=== PATIENT | male | born 1970 | race Caucasian/White ===

== ENCOUNTER 2017-10-03 16:19 | Observation (INO) ==
[2017-10-03] MEDS ORDERED: Aspirin 81 MG TAB.CHEW PO ONE (16:41)
[2017-10-03] MEDS ORDERED: 0.9 % Sodium Chloride 500 ML IVC ONE (16:42)
--- NOTE | 2017-10-03 16:44 | Emergency Department Note ---
Disposition Clinical Impression: Alcohol use, Pulmonary nodule Chest pain Qualifiers: Chest pain type: unspecified Qualified Code(s): R07.9 - Chest pain, unspecified Hypertension Qualifiers: Hypertension type: unspecified Qualified Code(s): I10 - Essential (primary) hypertension Disposition: Admitted As Inpatient Condition: Good Referrals: Dillon Bartlett MD [Primary Care Provider] - Forms: ED Satisfaction Letter Time of Disposition: 18:24 Chest Pain HPI - General Chief Complaint: ED Chest Pain Stated Complaint: chest pain Time Seen by Provider: 10/03/17 16:32 Source: patient Mode of arrival: ambulatory Limitations: no limitations Vital Signs Reviewed: Yes Nursing Notes Reviewed: Yes - History of Present Illness HPI Narrative: 47-year-old male history of hypertension presents for evaluation of chest pain. Patient states his onset was proximally 4 hours prior to arrival. States he has sharp pain in his anterior chest into his back. Patient denies a nausea vomiting or diaphoresis. Patient denies any radiation of pain to his arms. She denies having any cardiac history. States that he was evaluated couple weeks ago for similar complaint was not admitted at that time. Patient states he felt short of breath while walking earlier today. Patient denies any abdominal pain. Denies any fevers or cough. Denies any history of stents or heart attacks in the past. Patient is concerned because he drinks daily. Severity scale (1-10): 4 - Related Data Allergies Allergy/AdvReac Type Severity Reaction Status Date / Time No Known Allergies Allergy Verified 10/03/17 16:23 All systems ED: reviewed and negative except as stated. Constitutional: Denies: fever Cardiovascular: Reports: chest pain Respiratory: Reports: dyspnea. Denies: cough, sputum production Gastrointestinal: Denies: abdominal pain, nausea, vomiting Chest Pain PMH - Past Medical History Medical history: Reports: hypertension Psychiatric history: Reports: no psych history - Social History Smoking Status: Never smoker Alcohol use: Reports: heavy Drug use: Reports: none Physical Exam - General Limitations: no limitations General appearance: alert, in no apparent distress - Head Head exam: atraumatic, normocephalic, normal inspection - Eye Eye exam: Present: normal appearance, PERRL, EOMI - ENT ENT exam: normal exam, normal oropharynx - Neck Neck exam: Present: normal inspection - Chest Chest inspection: Present: normal inspection, symmetric chest wall rise. Absent : tenderness, rash - Respiratory Respiratory exam: Present: normal lung sounds bilaterally. Absent: respiratory distress - Cardiovascular Cardiovascular exam: Present: normal rhythm, tachycardia. Absent: systolic murmur - Abdominal Exam Abdominal exam: Present: soft, Non-Tender - Extremities Exam Extremities exam: Present: normal inspection. Absent: pedal edema - Back Exam Back exam: Present: normal inspection - Neurological Exam Neurological exam: Present: alert, oriented X3 - Skin Skin exam: Present: warm, dry, intact, normal color Course - Reevaluation(s) Reevaluation #1: Patient seen and examined. Patient's pain is improved with nitroglycerin. Time: 17:21 Reevaluation #2: Patient repeat EKG shows sinus rhythm with a rate of 74. No ST elevation. T- wave inversion in lead 3. T-wave inversions in V1. No ST elevation. Left axis. Time: 18:21 Reevaluation #3: Patient seen and examined. Patient's resting comfortably. Patient states his pain has improved. Patient's blood pressure heart rate have improved as well. Patient was given Ativan due to his history of alcohol use as well as anxiety. Time: 18:33 Vital Signs Temperature 98.0 F 10/03/17 16:24 Pulse Rate 105 10/03/17 16:24 Respiratory Rate 18 10/03/17 16:24 Blood Pressure 190/123 10/03/17 16:24 O2 Sat by Pulse Oximetry 96 10/03/17 16:24 Temperature 98.0 F 10/03/17 16:24 Pulse Rate 103 10/03/17 18:19 Respiratory Rate 15 10/03/17 18:02 Blood Pressure 167/114 10/03/17 18:19 O2 Sat by Pulse Oximetry 98 10/03/17 18:02 Oxygen Delivery Oxygen Delivery Room Air Chest Pain - [facility] Narrative Medical decision making narrative: Patient presents with complaints of chest pain. Patient's chest pain was concerning with dull pressure anterior chest pain. No radiation. Patient's pain was relieved with nitroglycerin. Given the patient's history of sharp back pain patient received a CTA of the chest. No aorta dissection or pulmonary embolism. Patient's pain was relieved with nitroglycerin. Patient's blood pressure also improved throughout his ED course. Patient's troponin is negative with only a few hours of onset chest pain. Patient had serial EKGs which were nondiagnostic for ischemia or STEMI. Patient does have a history of alcohol use and was given Ativan due to likely anxiety. Given the patient's history and risk factors patient will be admitted for serial troponins and further cardiac evaluation. Patient was given aspirin. Patient was not started on heparin given his negative troponin and no ischemic EKG changes, and no chest pain. Patient CTA showed pulmonary nodules however the patient does not smoke and is not complaining of any cough or fevers. This information was discussed with the patient. - Lab Data Lab results reviewed: Yes I reviewed the patient's lab results. Result diagrams: 10/03/17 16:41 10/03/17 16:41 Lab Results 10/03/17 10/03/17 10/03/17 Range/Units 16:41 16:41 16:41 WBC 7.4 (4.3-11.1) K/mcL RBC 5.95 H (4.19-5.50) M/mcL Hgb 17.6 H (12.9-16.9) g/dL Hct 50.6 H (37.5-50.1) % MCV 85.0 (83.0-100.0) fL MCH 29.6 (28.0-33.3) pg MCHC 34.8 (31.6-35.5) g/dL RDW 12.9 (11.5-14.5) % Plt Count 224 (140-400) K/mcL MPV 9.5 (9.4-12.4) fL Immature Gran % 0.3 (0-4) % Seg Neutrophils % 70.0 % Lymphocytes % 21.7 % Monocytes % 7.3 % Eosinophils % 0.3 % Basophils % 0.4 % Neutrophils # 5.2 (1.6-8.9) K/mcL Lymphocytes # 1.6 (0.6-4.6) K/mcL Monocytes # 0.5 (0.0-1.3) K/mcL Eosinophils # 0.0 (0.0-0.6) K/mcL Basophils # 0.0 (0.0-0.2) K/mcL PT 10.5 (9.4-12.1) Seconds INR 1.0 APTT 34.0 (26.0-36.0) Seconds Sodium 136 (136-145) mEq/L Potassium 3.8 (3.5-5.1) mEq/L Chloride 102 (98-107) mEq/L Carbon Dioxide 22 L (23-29) mEq/L BUN 12 (6-20) mg/dL Creatinine 0.79 (0.70-1.30) mg/dL Est GFR ( Amer) > 60 (> 60) Est GFR (Non-Af Amer) > 60 (> 60) BUN/Creatinine Ratio 15 (6-26) Glucose 116 H (70-105) mg/dL Calculated Osmolality 283 (280-300) Calcium 10.3 (8.6-10.3) mg/dL Troponin I < 0.03 (< 0.04) ng/mL B-Natriuretic Peptide (Less than 100) pg/mL 10/03/17 Range/Units 16:41 WBC (4.3-11.1) K/mcL RBC (4.19-5.50) M/mcL Hgb (12.9-16.9) g/dL Hct (37.5-50.1) % MCV (83.0-100.0) fL MCH (28.0-33.3) pg MCHC (31.6-35.5) g/dL RDW (11.5-14.5) % Plt Count (140-400) K/mcL MPV (9.4-12.4) fL Immature Gran % (0-4) % Seg Neutrophils % % Lymphocytes % % Monocytes % % Eosinophils % % Basophils % % Neutrophils # (1.6-8.9) K/mcL Lymphocytes # (0.6-4.6) K/mcL Monocytes # (0.0-1.3) K/mcL Eosinophils # (0.0-0.6) K/mcL Basophils # (0.0-0.2) K/mcL PT (9.4-12.1) Seconds INR APTT (26.0-36.0) Seconds Sodium (136-145) mEq/L Potassium (3.5-5.1) mEq/L Chloride (98-107) mEq/L Carbon Dioxide (23-29) mEq/L BUN (6-20) mg/dL Creatinine (0.70-1.30) mg/dL Est GFR ( Amer) (> 60) Est GFR (Non-Af Amer) (> 60) BUN/Creatinine Ratio (6-26) Glucose (70-105) mg/dL Calculated Osmolality (280-300) Calcium (8.6-10.3) mg/dL Troponin I (< 0.04) ng/mL B-Natriuretic Peptide 13 (Less than 100) pg/mL - Radiology Data Radiology results reviewed: Yes I reviewed the patient's radiology results. Chest X-Ray 10/03/17 16:29 IMPRESSION: No acute cardiopulmonary process. D/ / 10/03/2017 17:09:04 Hiren Augustin MD / Onelia Garcia Interpreting Provider: Hiren Augustin MD Chest CTA 10/03/17 16:41 IMPRESSION: 1. No evidence of pulmonary embolism or aortic dissection. 2. No acute abnormality detected overall. 3. Several punctate nodules identified within the right middle lobe anteriorly, some of which are calcified, likely secondary to old granulomatous disease. To be safe, if there are any risk factors for lung neoplasm, follow-up would be recommended for the recommendations below. RECOMMENDATIONS: Fleischner Society guidelines for follow-up and management of incidentally detected pulmonary nodules: Multiple Solid Nodules: Nodule size less than 6 mm In a low-risk patient, no routine follow-up. In a high-risk patient, optional CT at 12 months. - Low risk patients include individuals with minimal or absent history of smoking and other known risk factors. - High risk patients include individuals with a history or smoking or known risk factors. Radiology 2017 http://pubs.rsna.org/doi/full/10.1148/radiol.[email or web address] D/ / Mook Wakefield MD / Mook Wakefield MD Interpreting Provider: Mook Wakefield MD - EKG Data EKG attestation: Yes I reviewed and interpreted this EKG. EKG shows normal: sinus rhythm Rate: tachycardia Rhythm: NSR Q waves: v1 T wave inversions noted in: III, v1 Interpretation: no acute changes, nonspecific ST-T wave changes Heart Score - Score History: Moderately Suspicious EKG: Non Specific repolarisation Disturbance Age: 45-65 Risk Factors: 1-2 risk factors Troponin: Less than normal limit HEART Score Total: 4 S.Garima - Marco A Situation: Demographics Background: Presenting Complaint Assessment: Vital Signs, Patient/Family Expectation Recommendation: Barrier(s) to disposition, Recommendation based on pending studies, treatments, or consults Marco A Report Given to: Dr. Delores Strickland Repor Time: 18:29 Attestation Statement - Attestation Attestation: Patient was seen with resident physician. I reviewed the history, physical, assessment and plan, and agree with the findings. I also personally evaluated this patient and had stui-bi-siip time with this patient. 47-year-old male presents to the emergency Department chief complaint of chest pain for approximately 4 hours. Patient states that he developed a chest pressure radiating into the back or it becomes a sharp pain. It is not positional not really associated with diaphoresis or shortness of breath. He has a known history of hypertension but no cardiac history. He does have a strong family history of cardiac disease in his mother having a heart attack in her early 50s. He denies fevers or chills cough or abdominal pain. Review of systems as per history of present illness, remainder reviewed and negative. Exam. Vital signs patient's tachycardic and hypertensive. Heart tachycardia regular rhythm. Lungs clear. ENT is unremarkable. Back is nontender to palpation. Extremities unremarkable. Abdomen is soft and nontender. Neurologically he is intact. Skin no rashes. Psych normal. ED course. We will treat the patient's chest pain with nitroglycerin which also address his blood pressure. We will then work on his heart rate. We will get a (chest CT scan to rule out PE and dissection. We will also get usual cardiac workup labs. His initial EKG did not show any acute ischemic changes. His workup did not reveal acute abnormalities. His pain was improved with nitroglycerin and his heart rate was under better control. We will admit to the hospitalist service for further evaluation and treatment. I agree with resident physician assessment and plan.
[2017-10-03 16:56] LABS: Basophils % 0.4 %; Eosinophils % 0.3 %; Hematocrit 50.6 % (37.5-50.1); Hemoglobin 17.6 g/dL (12.9-16.9); Immature Granulocytes % 0.3 % (0-4); Lymphocytes # 1.6 K/mcL (0.6-4.6); Lymphocytes % 21.7 %; Mean Corpuscular HGB Conc 34.8 g/dL (31.6-35.5); Mean Corpuscular Hemoglobin 29.6 pg (28.0-33.3); Mean Platelet Volume 9.5 fL (9.4-12.4); Monocytes # 0.5 K/mcL (0.0-1.3); Monocytes % 7.3 %; Neutrophils # 5.2 K/mcL (1.6-8.9); Platelet Count 224 K/mcL (140-400); Red Blood Count 5.95 M/mcL (4.19-5.50); Red Cell Distribution Width 12.9 % (11.5-14.5)
[2017-10-03 17:02] LABS: Prothrombin Time 10.5 Seconds (9.4-12.1)
[2017-10-03] MEDS: Nitroglycerin 0.4 MG TAB.SUBL SL PRN ×3 (17:07→17:22)
[2017-10-03 17:16] LABS: Troponin I < 0.03 ng/mL (< 0.04)
[2017-10-03 17:44] LABS: BUN/Creatinine Ratio 15 (6-26); Blood Urea Nitrogen 12 mg/dL (6-20); Calcium 10.3 mg/dL (8.6-10.3); Carbon Dioxide 22 mEq/L (23-29); Chloride 102 mEq/L (98-107); Glucose 116 mg/dL (70-105); Osmolality,Calculated 283 (280-300); Potassium 3.8 mEq/L (3.5-5.1); Sodium 136 mEq/L (136-145); eGFR For African Americans > 60 (> 60); eGFR For Non-African Americans > 60 (> 60)
[2017-10-03] MEDS ORDERED: *HR* LORazepam 2 MG/ML VIAL IVP ONE (17:52)
[2017-10-03] MEDS ORDERED: Nitroglycerin 1 INCH/GM PACKET TP ONE (19:35)
--- NOTE | 2017-10-03 20:04 | Internal Med History&Physical ---
Date of Encounter: 10/03/17 Time of Encounter: 19:54 Assessment and Plan (1) Chest pain Current visit: Yes Status: Acute Patient has atypical chest pain, post troponin is negative, CTA negative for PE. We will check echocardiogram due to alcohol history, follow up trop EKG shows nonspecific ST-T change likely related to alcohol abuse Qualifiers: Chest pain type: other chest pain Qualified Code(s): R07.89 - Other chest pain; R07.8 - Other chest pain (2) Hypertension Current visit: Yes Status: Chronic Continue home medication amlodipine 10 mg 1 Qualifiers: Hypertension type: essential hypertension Qualified Code(s): I10 - Essential (primary) hypertension (3) Alcohol use Current visit: Yes Status: Acute Last drink 10 PM on October 02, will place [facility], thiamine, consult social work therapist (4) Pulmonary nodule Current visit: Yes Status: Acute Follow up as outpatient in 12 months (5) Leg numbness Current visit: Yes Status: Acute We will check a vitamin B12 and a TSH. Brain MRI to rule out stroke Internal Medicine - H&P: HPI Chief complaint: chest pain Admitted From: Home Plans for Post Hospital Care: Home History of present illness: Mr. Mohan is a 47 year old male with history of hypertension presented for chest pain. chest pain started at noon when he was walking, located to the middle of chest, sharp pain, 4/10, constant, radiating to his right shoulder and his back, associated with SOB. Patient denies a nausea vomiting or diaphoresis. He had similar episode and was evaluated couple weeks ago. Denies any history of stents or heart attacks in the past. Patient is concerned because he has been drinking too much. he drinks daily, 1/2 gallon per week, last drink was 10 pm yesterday, he started to have shaking today, he decided to stop drinking. Patient also complains of left lower extremity numbness for few weeks denies weakness. lab shows unremarkable, chest x-ray is negative. CTA is negative for PE. Patient is going to be admitted for chest pain rule out MT. acute alcohol withdrawal , placed CIWA protocolol, consult a social work therapist. His left lower extremity numbness and will check a vitamin B12 and to brain MRI Past Med Surg Social Fam HX - Past Medical History Medical history: hypertension Psychiatric history: no psych history - Social History Smoking Status: Never smoker Smokeless Tobacco Status: Yes Alcohol use: heavy Drug use: none Internal Medicine - H&P: Meds 3 Allergy/AdvReac Type Severity Reaction Status Date / Time No Known Allergies Allergy Verified 10/03/17 16:23 All Systems PM: A 10-system review of systems was performed and is negative for pertinent findings except as documented above in the HPI. - Constitutional Constitutional: as per HPI - Constitutional Vitals: Temp Pulse Resp BP Pulse Ox 98.0 F 97 16 183/128 97 10/03/17 16:24 10/03/17 19:32 10/03/17 19:32 10/03/17 19:32 10/03/17 19:32 General appearance: Present: mild distress, A&O X 3 Exam: CONSTITUTIONAL: Patient appears as an age appropriate male well developed, in no acute distress. EYES Clear sclerae, bilateral pupils are equal, reactive to light and accommodation. Extraocular movements are intact RESPIRATORY: No accessory muscle use, bilateral clear to auscultation, no wheezing, no crackles/rales. CARDIOVASCULAR: Regular heart rate, normal S1 and S2, no murmurs GASTROINTESTINAL: bowel sounds present, soft, no tenderness. No hepatosplenomegaly. No bilateral CVA tenderness MUSCULOSKELETAL: Joints in normal range of motion, no clubbing, no edema, no cyanosis. Bilateral peripheral pulses 2+ LYMPHATIC no lymphadenopathy in neck, groin and axilla bilaterally, no thyromegaly. NEUROLOGIC: CN II to XII are grossly intact, no focal neurological deficit. Deep tendon reflexes 2+ bilaterally. Normal light touch sensation to upper and lower extremity PSYCHIATRIC: Oriented x3, with good insight, mood is euthymic. No hallucinations or delusions. SKIN: Skin warm and dry, no rashes, no open wound. Internal Med - H&P Results - Labs CBC & Chem 7: 10/03/17 16:41 10/03/17 16:41
[2017-10-03] MEDS ORDERED: diazePAM 10 MG/2 ML SYRINGE IVP PRN ×5 (20:09)
[2017-10-03] MEDS ORDERED: *HR* Promethazine 25 MG/ML VIAL IVP PRN (20:09)
[2017-10-03] MEDS ORDERED: Naloxone 0.4 MG/ML INJ IVP PRN (20:17)
[2017-10-03] MEDS ORDERED: cloNIDine HCl 0.1 MG TABLET PO PRN (20:21)
[2017-10-03] MEDS ORDERED: *HR* LORazepam 2 MG/ML VIAL IVP PRN ×3 (20:53)
[2017-10-03] MEDS: Thiamine (B-1) 100 MG TABLET PO SCH (21:12)
[2017-10-03] MEDS: amLODIPine 5 MG TABLET PO SCH (21:12)
[2017-10-03] MEDS: Vitamin B Complex/Vit C/Vit E 1 EACH TABLET PO SCH (21:14)
[2017-10-03] MEDS: Folic Acid 1 MG TABLET PO SCH (21:15)
[2017-10-03] MEDS: *HR* Heparin 5,000 UNIT/ML VIAL SQ SCH (21:17)
[2017-10-03] MEDS: Ringers Solution, Lactated 1,000 ML IVC SCH (21:18)
[2017-10-03] MEDS: diazePAM 10 MG TABLET PO SCH ×2 (21:29→23:02)
[2017-10-04 03:32] LABS: Basophils % 0.3 %; Eosinophils # 0.1 K/mcL (0.0-0.6); Eosinophils % 0.9 %; Immature Granulocytes % 0.3 % (0-4); Lymphocytes % 31.4 %; Mean Corpuscular Hemoglobin 29.5 pg (28.0-33.3); Mean Corpuscular Volume 84.3 fL (83.0-100.0); Mean Platelet Volume 9.5 fL (9.4-12.4); Monocytes # 0.7 K/mcL (0.0-1.3); Monocytes % 11.3 %; Neutrophils # 3.6 K/mcL (1.6-8.9); Platelet Count 185 K/mcL (140-400); Red Blood Count 4.98 M/mcL (4.19-5.50); Segmented Neutrophils % 55.8 %
[2017-10-04 03:33] LABS: Hemoglobin 14.7 g/dL (12.9-16.9)
[2017-10-04 03:54] LABS: BUN/Creatinine Ratio 17 (6-26); Blood Urea Nitrogen 11 mg/dL (6-20); Calcium 9.1 mg/dL (8.6-10.3); Carbon Dioxide 25 mEq/L (23-29); Chloride 102 mEq/L (98-107); Chol/HDL Ratio 3.7 (0-4.9); Cholesterol 212 mg/dL (< 200); Glucose 96 mg/dL (70-105); HDL Cholesterol 58 mg/dL (40-59); LDL Cholesterol,Calculated 113 mg/dL (0-99); Osmolality,Calculated 281 (280-300); Phosphorous 3.2 mg/dL (2.7-4.5); Potassium 3.5 mEq/L (3.5-5.1); Sodium 136 mEq/L (136-145); Triglycerides 206 mg/dL (< 150); eGFR For African Americans > 60 (> 60); eGFR For Non-African Americans > 60 (> 60)
[2017-10-04] MEDS: *HR* Heparin 5,000 UNIT/ML VIAL SQ SCH ×3 (05:04→21:09)
[2017-10-04] MEDS ORDERED: Acetaminophen 325 MG TABLET PO PRN (05:24)
[2017-10-04] MEDS: Ringers Solution, Lactated 1,000 ML IVC SCH (07:05)
[2017-10-04] MEDS: Thiamine (B-1) 100 MG TABLET PO SCH (08:57)
[2017-10-04] MEDS: Vitamin B Complex/Vit C/Vit E 1 EACH TABLET PO SCH (08:57)
[2017-10-04] MEDS: Folic Acid 1 MG TABLET PO SCH (08:57)
[2017-10-04] MEDS: diazePAM 10 MG TABLET PO SCH ×3 (08:57→20:41)
[2017-10-04] MEDS: amLODIPine 5 MG TABLET PO SCH (09:10)
--- NOTE | 2017-10-04 11:46 | Internal Med Progress Note ---
Date of Encounter: 10/04/17 Time of Encounter: 08:55 - Assessment and plan (1) Chest pain Current Visit: Yes Status: Acute Assessment and plan: Patient denies chest pain since yesterday. He reports the chest pain resolved in the emergency department. Chest x-ray is negative, chest CTA negative for PE. Troponins negative. BNP negative. Patient does have elevated lipid panel, will recommend lifestyle changes. Due to patient's chronic alcohol abuse, but none recommended starting statin at this time due to higher potential for liver damage. Echocardiogram is ordered and pending. Pt with risk factors including HLD, HTN, alcohol use, stress test ordered for a.m. Continue telemetry Aspirin, nitroglycerin for chest pain Stress and echo ordered and pending. Qualifiers: Chest pain type: other chest pain Qualified Code(s): R07.89 - Other chest pain; R07.8 - Other chest pain (2) Alcohol use Current Visit: Yes Status: Chronic Assessment and plan: Pt reports drinking approximately 1/2 gallon of whiskey or bourbon, as well as a 6 pack of beer weekly. he states that he realizes that he needs to stop drinking and is requesting help. [employer] protocol Last drink 2200 10/02 (3) Leg numbness Current Visit: Yes Status: Acute Assessment and plan: Denies currently. INtermittent LLE numbness for 2-3 mos. B12 WNL. Brain MRI ordered by admitter and is pending until tomorrow when it is available. (4) Pulmonary nodule Current Visit: Yes Status: Acute Assessment and plan: Several punctate nodules in right middle lobe. Follow-up in 12 months. Chest CTA 10/03/17 16:41 IMPRESSION: 1. No evidence of pulmonary embolism or aortic dissection. 2. No acute abnormality detected overall. 3. Several punctate nodules identified within the right middle lobe anteriorly, some of which are calcified, likely secondary to old granulomatous disease. To be safe, if there are any risk factors for lung neoplasm, follow-up would be recommended for the recommendations below. RECOMMENDATIONS: Fleischner Society guidelines for follow-up and management of incidentally detected pulmonary nodules: Multiple Solid Nodules: Nodule size less than 6 mm In a low-risk patient, no routine follow-up. In a high-risk patient, optional CT at 12 months. - Low risk patients include individuals with minimal or absent history of smoking and other known risk factors. - High risk patients include individuals with a history or smoking or known risk factors. Radiology 2017 http://pubs.rsna.org/doi/full/10.1148/radiol.[email or web address] D/ / Mook Wakefield MD / Mook Wakefield MD Interpreting Provider: Mook Wakefield MD (5) Hypertension Current Visit: Yes Status: Chronic Assessment and plan: Well-controlled currently. Continue home medications. Continue monitoring vital signs per admission. Qualifiers: Hypertension type: essential hypertension Qualified Code(s): I10 - Essential (primary) hypertension (6) DVT prophylaxis Current Visit: Yes Status: Acute Assessment and plan: Heparin SQ - Time Spent With Patient less than 15 minutes - Subjective Interval history: Pt was seen and assessed at bedside at 0855. Pt is alert, awake, answers questions appropriately. He reports headache overnight that has resolved. He denies dizziness or vision changes. He denies chest pain, SOB, n/v/d, diaphoresis, or abdominal pain. - Constitutional Vitals: Temp Pulse Resp BP Pulse Ox 97.6 F 82 15 128/81 96 10/04/17 11:02 10/04/17 11:02 10/04/17 11:02 10/04/17 11:02 10/04/17 11:02 General appearance: Present: cooperative, mild distress, A&O X 3, pleasant, answers questions appropriately - Head Head exam: Present: atraumatic, normal inspection, normocephalic - Eye Eye exam: Present: normal appearance, conjuntiva pink, sclera anicteric - Neck Neck exam general surgery: Present: normal inspection, supple, trachea midline. Absent: lymphadenopathy, tenderness - Respiratory Respiratory exam: Present: CTAB. Absent: accessory muscle use, chest wall tenderness, decreased breath sounds, rales, respiratory distress, rhonchi, wheezes - Cardiovascular Cardiovascular exam: Present: RRR, +S1, +S2. Absent: diastolic murmur, gallop, rubs, systolic murmur - GI/Abdominal GI/Abdominal exam: Present: normal bowel sounds, soft. Absent: distended, hepatomegaly, tenderness - Extremities Exam Extremities exam: Present: normal capillary refill, normal inspection, warm, radial pulses palpable and symmetrical. Absent: calf tenderness, cyanotic, pedal edema, tenderness - Neurological Exam Neurological exam: Present: alert, oriented X3, no focal deficits. Absent: facial droop, speech deficit - Skin Skin exam: Present: dry, intact, normal color, warm. Absent: rash Internal Medicine: Result - Labs CBC & Chem 7: 10/04/17 02:48 10/04/17 02:48 Labs: Short CBC 10/04/17 Range/Units 02:48 WBC 6.4 (4.3-11.1) K/mcL Hgb 14.7 D (12.9-16.9) g/dL Hct 42.0 (37.5-50.1) % Plt Count 185 (140-400) K/mcL Neutrophils # 3.6 (1.6-8.9) K/mcL BMP 10/04/17 02:48 Sodium 136 Potassium 3.5 Chloride 102 Carbon Dioxide 25 BUN 11 Creatinine 0.65 L Glucose 96 Calcium 9.1 Cardiac Enzymes 10/03/17 10/04/17 10/04/17 Range/Units 20:47 02:48 08:49 Troponin I < 0.03 < 0.03 < 0.03 (< 0.04) ng/mL - ABG Interpretation ABG results: PT/INR, D-dimer PT 10.5 Seconds (9.4-12.1) 10/03/17 16:41 Consult Discharge Plan - Plan Referrals: Dillon Bartlett MD [Primary Care Provider] -
[2017-10-05] MEDS: *HR* Heparin 5,000 UNIT/ML VIAL SQ SCH (05:12)
[2017-10-05] MEDS ORDERED: Regadenoson 0.4 MG/5 ML SYRINGE IVP ONE (06:00)
[2017-10-05] MEDS: Folic Acid 1 MG TABLET PO SCH (09:26)
[2017-10-05] MEDS: diazePAM 10 MG TABLET PO SCH (09:26)
[2017-10-05] MEDS: Thiamine (B-1) 100 MG TABLET PO SCH (09:26)
[2017-10-05] MEDS: Vitamin B Complex/Vit C/Vit E 1 EACH TABLET PO SCH (09:26)
[2017-10-05] MEDS: amLODIPine 5 MG TABLET PO SCH (09:26)
[2017-10-05 11:24] VITALS: BP 115/71
--- NOTE | 2017-10-05 14:35 | Discharge Summary ---
- NOTES TO OUTPATIENT PROVIDER Notes to Outpatient Provider: Pt will need follow up for referral to counseling and for monitoring of elevated TSH. Recommend repeat lab in 4-6 weeks. Orders not resulted at time of discharge: Pending orders 10/03/17 20:22 MR head/brain wo con [MR] Routine 10/04/17 06:00 ECG 12 lead ECG [ECG] AM 0600 10/04/17 12:03 NM manasa perf SPECT multi [NM] Routine Date of Encounter: 10/05/17 Time of Encounter: 09:40 - Discharge Diagnosis (1) Chest pain Priority: Secondary Status: Acute Comments: Chest x-ray is negative, chest CTA negative for PE. Troponins negative. BNP negative. Patient does have elevated lipid panel, will recommend lifestyle changes. Due to patient's chronic alcohol abuse, do not recommended starting statin at this time due to higher potential for liver damage. Echo with LVEF of 40-50%, severely dilated left ventricle, mild LV DD. Patient nuclear stress test was negative for ischemia or infarct with a gated EF of 52%. I recommended to patient that he follow up with cardiology for decreased LV on both studies, he agreed. Patient also reports mild anxiety with shortness of breath, flight of ideas. 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 Patient with increased life stress due to of parent, as well as some increased stress at work. Patient reports that while he is taking Valium for his primary care provider prescribed, he felt better and was drinking. He states primary care will not refill it for him now. Recommend patient follow-up counseling Center and not replace one substance with another. He is agreeable. Qualifiers: Chest pain type: other chest pain Qualified Code(s): R07.89 - Other chest pain; R07.8 - Other chest pain (2) Alcohol use Priority: Secondary Status: Chronic Comments: Patient reports that he drinks daily, states that he only wants to drink on the weekends. He reports drinking approximately one half gallon of whiskey or bourbon, as well as a 6 pack of beer weekly. Recommend patient seek treatment program, inpatient or outpatient. licensed clinical social worker to provide list of resources. Last drink 10/02 @ 2200. (3) Leg numbness Priority: Secondary Status: Acute Comments: Pt denies since admission. MRI still pending. Pt denies weakness, strength +5 in all extremities bilaterally upper and lower. MRI still pending. (4) Pulmonary nodule Priority: Secondary Status: Acute Comments: Follow up, repeat CT in 12 months. Chest CTA 10/03/17 16:41 IMPRESSION: 1. No evidence of pulmonary embolism or aortic dissection. 2. No acute abnormality detected overall. 3. Several punctate nodules identified within the right middle lobe anteriorly, some of which are calcified, likely secondary to old granulomatous disease. To be safe, if there are any risk factors for lung neoplasm, follow-up would be recommended for the recommendations below. RECOMMENDATIONS: Fleischner Society guidelines for follow-up and management of incidentally detected pulmonary nodules: Multiple Solid Nodules: Nodule size less than 6 mm In a low-risk patient, no routine follow-up. In a high-risk patient, optional CT at 12 months. - Low risk patients include individuals with minimal or absent history of smoking and other known risk factors. - High risk patients include individuals with a history or smoking or known risk factors. Radiology 2017 http://pubs.rsna.org/doi/full/10.1148/radiol.8832026070 D/ / Mook Wakefield MD / Mook Wakefield MD Interpreting Provider: Mook Wakefield MD (5) Hypertension Priority: Secondary Status: Chronic Comments: Well-controlled. Continue home medications. Qualifiers: Hypertension type: essential hypertension Qualified Code(s): I10 - Essential (primary) hypertension (6) DVT prophylaxis Priority: Secondary Status: Acute Comments: Heparin subcutaneous Hospital course: Mr. Mohan is a 47 year old male with past medical history significant for hypertension and alcoholism. Patient presented to the emergency room with chest pain, midsternal location, sharp, constant radiating to right shoulder and back, associated shortness of breath. Onset during exertion. There is no nausea or vomiting or diaphoresis. Patient with no prior cardiac history or workup. She reports that he drinks approximately one half gallon of bourbon a week, as well as at least a sixpack of beer. Patient states that he would love to be able to stop drinking the bourbon and just drink more beer. He also states that his father 2 weeks ago, he was given Valium by his primary care provider which provided him relief and he did not drink. I explained to him I would not be able to refill the Valium, and that he should not substitute one substitutes for another. Encouraged him to seek counseling and/or attend alcohol cessation programs to get to the root cause of why he drinks and not create other substitutions. Patient was agreeable, social workers to provide resources. Patient also reports lower extremity tingling, intermittent. He has had none since he has been here. MRI of the head is currently pending. Ischemic workup was negative. Echocardiogram with ejection fraction of 40-50%, mild LV DD and no valvular dysfunction. Stress test was negative with a gated EF of 54%. EKG sinus without ST changes. Vitals and labs are stable and within normal limits, patient has been given CIWA protocol and has not been requiring Ativan. He stable and appropriate for discharge Discharge discussed with: patient - Time Spent with Patient Total time spent providing and/or coordinating discharge services: Less than 30 minutes - Discharge Medications Prescriptions: Folic Acid 1 mg PO DAILY #30 tablet Thiamine (B-1) [Vitamin B-1] 100 mg PO DAILY #30 tablet Vitamin B Complex/Vit C/Vit E [Stresstab] 1 each PO DAILY #30 tablet Home Medications: Amlodipine Besylate 10 mg PO DAILY 10/04/17 [History] Aspirin [Lo-Dose Aspirin EC] 81 mg PO DAILY 10/04/17 [History] Folic Acid 1 mg PO DAILY #30 tablet 10/05/17 [Rx] Thiamine (B-1) [Vitamin B-1] 100 mg PO DAILY #30 tablet 10/05/17 [Rx] Vitamin B Complex/Vit C/Vit E [Stresstab] 1 each PO DAILY #30 tablet 10/05/17 [ Rx] Allergies/Adverse Reactions: 3 Allergy/AdvReac Type Severity Reaction Status Date / Time No Known Allergies Allergy Verified 10/04/17 11:06 Date of admission: 10/03/17 18:41 Primary care physician: Dillon Bartlett, Consults: 10/03/17 20:09 Consult to Plate Sensitizer [CONS] Routine Reason for SW Consult: alcohol rehab Discharging clinician: Neetu Tamayo Anticipated date of discharge: 10/05/17 - Constitutional Vitals: Temp Pulse Resp BP Pulse Ox 97.5 F L 93 16 115/71 98 10/05/17 11:23 10/05/17 11:23 10/05/17 11:23 10/05/17 11:23 10/05/17 11:23 General appearance: Present: cooperative, mild distress, A&O X 3, pleasant, no acute distress, answers questions appropriately - Head Head exam: Present: atraumatic, normal inspection, normocephalic - Eye Eye exam: Present: normal appearance, conjuntiva pink, sclera anicteric - Neck Neck exam general surgery: Present: supple, trachea midline. Absent: lymphadenopathy, tenderness - Respiratory Respiratory exam: Present: chest wall tenderness, CTAB. Absent: accessory muscle use, rales, respiratory distress, rhonchi, wheezes - Cardiovascular Cardiovascular exam: Present: RRR, +S1, +S2. Absent: diastolic murmur, gallop, rubs, systolic murmur - GI/Abdominal GI/Abdominal exam: Present: normal bowel sounds, soft. Absent: distended, hepatomegaly, tenderness - Extremities Exam Extremities exam: Present: normal capillary refill, normal inspection, warm, radial pulses palpable and symmetrical. Absent: calf tenderness, cyanotic, pedal edema, tenderness - Neurological Exam Neurological exam: Present: alert, oriented X3, no focal deficits. Absent: facial droop, speech deficit - Skin Skin exam: Present: dry, intact, normal color, warm. Absent: rash - Patient Status Disposition: Home, Self-Care Condition: Good Functional capacity at discharge: independent ambulation Overall status at discharge: patient is back to baseline - Discharge Instructions Follow Up With: Dillon Bartlett MD [Primary Care Provider] - Additional Instructions: Follow up with Dr. Bartlett in the next 7-10 days for a recheck. Return to the ER as needed for any other problems or concerns, or iif your symptoms return or worsen. Take your medications as directed, 3 prescriptions called into [facility]. Return to your normal diet and activities as tolerated. - Diet and Activity Activity: increase activity as tolerated Diet: advance to your usual diet
--- NOTE | 2017-10-07 18:59 | Electrocardiograph Report ---
[address] [address] Test Date: 2017-10-03 Pat Name: Alban Mohan Department: 103 Room: 3B55 Gender: M Ed Tech: SEHA : 1970 Requested By: Yanni Bolden Order Number: [id number] Reading MD: Gelacio Tejeda MD Measurements Intervals [place] Rate: 107 P: 6 [place]: 186 QRS: -12 QRSD: 108 T: -6 QT: 336 QTc: 399 Interpretive Statements SINUS TACHYCARDIA MINIMAL VOLTAGE CRITERIA FOR LVH, CONSIDER NORMAL VARIANT Poor R wave progression BASELINE ARTIFACT Electronically Signed On 10-07-2017 18:57:43 EDT by Gelacio Tejeda MD
--- NOTE | 2017-10-07 19:06 | Electrocardiograph Report ---
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
== END 2017-10-05 16:23 | disposition home or self-care (01) ==
LOC: 3BNU 16:19 → EMEROO 16:19 → 3BNU 19:50
PROVIDERS: ADMIT Student in an Organized Health Care Education/Training Program; ATTEND Nurse Practitioner Acute Care

== ENCOUNTER 2020-10-25 13:25 | Observation (INO) ==
[2020-10-25] MEDS ORDERED: Potassium Chloride Elixir 20 MEQ/15 ML UDC PO ONE (14:18)
[2020-10-25] MEDS ORDERED: diazePAM 5 MG TABLET PO ONE (15:06)
[2020-10-25] MEDS ORDERED: Naloxone 0.4 MG/ML INJ IVP PRN (15:08)
[2020-10-25] MEDS ORDERED: Ondansetron 4 MG/2 ML VIAL IVP PRN (15:08)
[2020-10-25] MEDS ORDERED: *HR* HYDROcodone/Acet 5/325 mg TABLET PO PRN (15:08)
[2020-10-25] MEDS ORDERED: *HR* LORazepam 2 MG/ML VIAL IVP PRN ×2 (15:20→15:21)
[2020-10-25] MEDS: *HR* Heparin 5,000 UNIT/ML VIAL SQ SCH ×2 (16:20→21:12)
[2020-10-25] MEDS: Thiamine (B-1) 100 MG, Folic Acid 1 MG, MVI, adult with vitamin K 10 ML in 0.9 % Sodi... IVPB SCH ×2 (18:25→18:48)
[2020-10-26 04:52] LABS: Alanine Aminotransferase 132 Units/L (7-52); Albumin/Globulin Ratio 1.3 (1.1-2.2); Alkaline Phosphatase 78 Units/L (34-104); Aspartate Amino Transferase 206 Units/L (13-39); BUN/Creatinine Ratio 8 (6-26); Bilirubin,Total 1.1 mg/dL (0.3-1.0); Blood Urea Nitrogen 4 mg/dL (6-20); Calcium 8.6 mg/dL (8.6-10.3); Carbon Dioxide 27 mEq/L (23-29); Chloride 98 mEq/L (98-107); Globulin 3.1 g/dL (2.4-3.5); Glucose 145 mg/dL (70-105); Osmolality,Calculated 281 (280-300); Potassium 3.6 mEq/L (3.5-5.1); Sodium 136 mEq/L (136-145); Total Protein 7.1 g/dL (6.4-8.9); eGFR For African Americans > 60 (> 60); eGFR For Non-African Americans > 60 (> 60)
[2020-10-26] MEDS: *HR* LORazepam 2 MG/ML VIAL IVP PRN ×2 (09:41→16:59)
[2020-10-26] MEDS: amLODIPine 5 MG TABLET PO SCH (09:57)
[2020-10-26] MEDS: Folic Acid 1 MG TABLET PO SCH (09:57)
[2020-10-26] MEDS: Thiamine (B-1) 100 MG TABLET PO SCH (09:58)
[2020-10-26] MEDS ORDERED: Melatonin 3 MG TABLET PO PRN (16:56)
[2020-10-26] MEDS: Thiamine (B-1) 100 MG, Folic Acid 1 MG, MVI, adult with vitamin K 10 ML in 0.9 % Sodi... IVPB SCH (17:00)
[2020-10-26] MEDS: *HR* Heparin 5,000 UNIT/ML VIAL SQ SCH (17:27)
[2020-10-27] MEDS: *HR* Heparin 5,000 UNIT/ML VIAL SQ SCH (04:04)
[2020-10-27 06:22] LABS: Hematocrit 42.8 % (37.5-50.1); Hemoglobin 14.2 g/dL (12.9-16.9); Immature Platelets 5.8 % (1.1-6.1); Mean Corpuscular HGB Conc 33.2 g/dL (31.6-35.5); Mean Corpuscular Hemoglobin 31.3 pg (28.0-33.3); Mean Corpuscular Volume 94.5 fL (83.0-100.0); Mean Platelet Volume 10.7 fL (9.4-12.4); Red Blood Count 4.53 M/mcL (4.19-5.50); White Blood Count 5.1 K/mcL (4.3-11.1)
[2020-10-27 06:42] LABS: Alanine Aminotransferase 105 Units/L (7-52); Albumin 4.1 g/dL (3.5-5.7); Albumin/Globulin Ratio 1.2 (1.1-2.2); Alkaline Phosphatase 81 Units/L (34-104); Aspartate Amino Transferase 139 Units/L (13-39); BUN/Creatinine Ratio 9 (6-26); Bilirubin,Total 1.5 mg/dL (0.3-1.0); Blood Urea Nitrogen 5 mg/dL (6-20); Calcium 9.5 mg/dL (8.6-10.3); Carbon Dioxide 26 mEq/L (23-29); Chloride 98 mEq/L (98-107); Globulin 3.3 g/dL (2.4-3.5); Glucose 134 mg/dL (70-105); Osmolality,Calculated 277 (280-300); Potassium 3.8 mEq/L (3.5-5.1); Sodium 134 mEq/L (136-145); Total Protein 7.4 g/dL (6.4-8.9); eGFR For African Americans > 60 (> 60); eGFR For Non-African Americans > 60 (> 60)
[2020-10-27] MEDS ORDERED: *HR* LORazepam 0.5 MG TABLET PO PRN (10:53)
[2020-10-27] MEDS: Folic Acid 1 MG TABLET PO SCH (10:53)
[2020-10-27] MEDS: amLODIPine 5 MG TABLET PO SCH (10:54)
[2020-10-27] MEDS: Thiamine (B-1) 100 MG TABLET PO SCH (10:54)
[2020-10-27] MEDS ORDERED: polyethylene glycoL 3350 17 GM POWD.PACK PO PRN (10:55)
[2020-10-27] MEDS: Thiamine (B-1) 100 MG, Folic Acid 1 MG, MVI, adult with vitamin K 10 ML in 0.9 % Sodi... IVPB SCH (17:12)
[2020-10-27] MEDS: *HR* LORazepam 2 MG/ML VIAL IVP PRN (17:12)
[2020-10-28] MEDS: amLODIPine 5 MG TABLET PO SCH (10:09)
[2020-10-28] MEDS: Thiamine (B-1) 100 MG TABLET PO SCH (10:09)
[2020-10-28] MEDS: Folic Acid 1 MG TABLET PO SCH (10:09)
[2020-10-28 10:29] LABS: Mean Platelet Volume 10.5 fL (9.4-12.4); Red Cell Distribution Width 12.9 % (11.5-14.5)
[2020-10-28 10:31] LABS: Hematocrit 43.9 % (37.5-50.1); Hemoglobin 14.7 g/dL (12.9-16.9); Immature Platelets 5.5 % (1.1-6.1); Mean Corpuscular HGB Conc 33.5 g/dL (31.6-35.5); Mean Corpuscular Hemoglobin 31.4 pg (28.0-33.3); Mean Corpuscular Volume 93.8 fL (83.0-100.0); Red Blood Count 4.68 M/mcL (4.19-5.50); White Blood Count 4.4 K/mcL (4.3-11.1)
[2020-10-28 10:34] VITALS: BP 115/81
[2020-10-28 10:45] LABS: Alanine Aminotransferase 102 Units/L (7-52); Albumin 4.1 g/dL (3.5-5.7); Albumin/Globulin Ratio 1.2 (1.1-2.2); Alkaline Phosphatase 82 Units/L (34-104); Aspartate Amino Transferase 137 Units/L (13-39); BUN/Creatinine Ratio 11 (6-26); Bilirubin,Total 1.7 mg/dL (0.3-1.0); Blood Urea Nitrogen 6 mg/dL (6-20); Calcium 9.6 mg/dL (8.6-10.3); Carbon Dioxide 25 mEq/L (23-29); Chloride 98 mEq/L (98-107); Globulin 3.4 g/dL (2.4-3.5); Glucose 229 mg/dL (70-105); Osmolality,Calculated 281 (280-300); Potassium 3.6 mEq/L (3.5-5.1); Sodium 133 mEq/L (136-145); Total Protein 7.5 g/dL (6.4-8.9); eGFR For African Americans > 60 (> 60); eGFR For Non-African Americans > 60 (> 60)
== END 2020-10-28 14:03 | disposition home or self-care (01) ==
LOC: EMEROOARM 13:25 → 3BNU 13:25 → SUATTDRO 15:13 → 3BNU 15:53
PROVIDERS: ADMIT Internal Medicine; ATTEND Nurse Practitioner